=== PATIENT | male | born 1965 | race African-American/Black ===

== ENCOUNTER 2022-07-18 05:09 | Emergency (ER) | payer MEDICAID ==
[~2022-07-18] VITALS: Ht 188 cm; Wt 90.9 kg
[2022-07-18 05:57] VITALS: BP 160/80
== END 2022-07-18 06:53 | disposition home or self-care (01) ==
LOC: EMS 05:09
DX: F25.9 Schizoaffective disorder, unspecified (principal); F31.9 Bipolar disorder, unspecified; F15.90 Other stimulant use, unspecified, uncomplicated
CPT/HCPCS: 99285; Z7502

== ENCOUNTER 2024-10-19 13:27 | Emergency (ER) | payer MEDICAID, OTHER ==
[~2024-10-19] VITALS: Ht 188 cm; Wt 80.4 kg
[2024-10-19 13:36] VITALS: BP 116/69; PULSE 89; RESP 24; TEMP 98.9; O2SAT 98
[2024-10-19] MEDS: BACITRACIN 0.9 GM PACKET OINTMENT TP ONE (14:02)
== END 2024-10-19 14:32 ==
LOC: EMS 13:27
DX: S61.011A Laceration without foreign body of right thumb without damage to nail, initial encounter (principal); F20.9 Schizophrenia, unspecified; Z88.0 Allergy status to penicillin; X58.XXXA Exposure to other specified factors, initial encounter; Y93.89 Activity, other specified; Y92.89 Other specified places as the place of occurrence of the external cause; Y99.8 Other external cause status
CPT/HCPCS: 99283

== ENCOUNTER 2025-04-02 13:15 | Inpatient (IN) | payer MEDICAID, OTHER ==
[~2025-04-02] VITALS: Ht 182.9 cm; Wt 85.8 kg
[2025-04-02] MEDS ORDERED: 0.9% SODIUM CHLORIDE 10 ML SYRINGE IVP PRN (15:30)
[2025-04-02 15:56] LABS: PLATELET COUNT (AUTO) 282 K/uL (150-450); RED BLOOD CELL COUNT(AUTO) 3.39 MIL/uL (4.50-5.90); RED CELL DISTRIBUTION WIDTH 15.3 % (11.5-14.5); WHITE BLOOD COUNT (AUTO) 7.5 K/uL (4.5-11.0)
[2025-04-02] MEDS: SODIUM CHLORIDE 0.9% 2,450 ML IV ONE (16:00)
[2025-04-02 16:05] LABS: CALCIUM, TOTAL 8.8 mg/dL (8.8-10.5); CREATININE 0.77 mg/dL (0.60-1.30); GLOMERULAR FILTR. RATE CALC > 60 mL/min (>60); GLUCOSE,RANDOM 91 mg/dL (70-110); SODIUM SERUM 138 mmol/L (136-145); UREA NITROGEN, BLOOD 13 mg/dL (7-18)
[2025-04-02 16:12] LABS: LACTIC ACID 1.3 mmol/L (0.4-2.0)
[2025-04-02 16:15] LABS: TROPONIN I-HIGH SENSITIVITY 6 ng/L (<76)
[2025-04-02 16:21] LABS: APPEARANCE,URINE CLEAR (CLEAR); GLUCOSE, URINE (UA) NEGATIVE (NEGATIVE); LEUKOCYTE ESTERASE ,URINE NEGATIVE (NEGATIVE); NITRATE,URINE NEGATIVE (NEGATIVE); OCCULT BLOOD,URINE NEGATIVE (NEGATIVE); SPECIFIC GRAVITIY, URINE 1.023 (1.003-1.030)
[2025-04-02] MEDS: ONDANSETRON HCL 4 MG/2 ML VIAL IVP ONE (16:32)
[2025-04-02] MEDS: VANCOMYCIN 1.75GM/WATER(PEG) 350 ML IV ONE (16:32)
[2025-04-02] MEDS: MORPHINE SULFATE 4 MG/ML SYRINGE IVP ONE (16:32)
[2025-04-02] MEDS: BACITRACIN 28 GM OINTMENT TP ONE (16:32)
[2025-04-02] MEDS ORDERED: BISACODYL 10 MG RECTAL RECTAL SUPPOSITORY PR PRN (19:45)
[2025-04-02] MEDS ORDERED: ONDANSETRON HCL 4 MG/2 ML VIAL IVP PRN (19:45)
[2025-04-02] MEDS ORDERED: MAGNESIUM HYDROXIDE SUSPENSION 30 ML UDCUP PO PRN (19:45)
[2025-04-02] MEDS ORDERED: ZOLPIDEM TARTRATE 5 MG TABLET PO PRN (19:45)
[2025-04-02] MEDS: DOCUSATE SODIUM 100 MG CAPSULE PO SCH (21:08)
[2025-04-02 22:17] VITALS: BP 134/73; PULSE 106; RESP 18; TEMP 98.6; O2SAT 100
[2025-04-02] MEDS: MORPHINE SULFATE 2 MG/ML SYRINGE IVP PRN (22:56)
[2025-04-02] MEDS ORDERED: SODIUM CHLORIDE 0.9% 500 ML IV ONE (23:37)
[2025-04-02] MEDS: VANCOMYCIN 1GM/WATER(PEG/NADA) 200 ML IV SCH (23:47)
[2025-04-02] MEDS: HEPARIN SODIUM,PORCINE 5,000 UNITS/ML VIAL SQ SCH (23:51)
[2025-04-03] MEDS ORDERED: VANCOMYCIN 1GM/WATER(PEG/NADA) 200 ML IV SCH
[2025-04-03 04:27] VITALS: BP 110/78; PULSE 91; RESP 18; TEMP 98.3; O2SAT 97
[2025-04-03 06:13] LABS: CALCIUM, TOTAL 8.4 mg/dL (8.8-10.5); CREATININE 0.68 mg/dL (0.60-1.30); GLOMERULAR FILTR. RATE CALC > 60 mL/min (>60); GLUCOSE,RANDOM 94 mg/dL (70-110); SODIUM SERUM 140 mmol/L (136-145); UREA NITROGEN, BLOOD 8 mg/dL (7-18)
[2025-04-03 06:20] LABS: PLATELET COUNT (AUTO) 247 K/uL (150-450); RED BLOOD CELL COUNT(AUTO) 3.23 MIL/uL (4.50-5.90); RED CELL DISTRIBUTION WIDTH 15.1 % (11.5-14.5); WHITE BLOOD COUNT (AUTO) 5.9 K/uL (4.5-11.0)
[2025-04-03] MEDS: PANTOPRAZOLE SODIUM 40 MG DR TABLET PO SCH (08:12)
[2025-04-03] MEDS: BACITRACIN 28 GM OINTMENT TP SCH (08:13)
[2025-04-03 08:34] VITALS: BP 107/69; PULSE 89; RESP 18; TEMP 97.9; O2SAT 98
[2025-04-03 19:35] VITALS: BP 112/77; PULSE 90; RESP 18; TEMP 98.1; O2SAT 100
[2025-04-04 04:23] VITALS: BP 105/65; PULSE 76; RESP 18; TEMP 98.1; O2SAT 98
[2025-04-04 06:15] LABS: PLATELET COUNT (AUTO) 269 K/uL (150-450); RED BLOOD CELL COUNT(AUTO) 3.26 MIL/uL (4.50-5.90); RED CELL DISTRIBUTION WIDTH 15.2 % (11.5-14.5); WHITE BLOOD COUNT (AUTO) 4.4 K/uL (4.5-11.0)
[2025-04-04 06:16] LABS: CALCIUM, TOTAL 8.4 mg/dL (8.8-10.5); CREATININE 0.79 mg/dL (0.60-1.30); GLOMERULAR FILTR. RATE CALC > 60 mL/min (>60); GLUCOSE,RANDOM 91 mg/dL (70-110); SODIUM SERUM 139 mmol/L (136-145); UREA NITROGEN, BLOOD 10 mg/dL (7-18)
[2025-04-04 08:33] VITALS: BP 110/64; PULSE 86; RESP 18; TEMP 97.9; O2SAT 100
[2025-04-04] MEDS: MULTIVITAMINS WITH MINERALS, THERAPEUTIC TABLET PO SCH (09:13)
[2025-04-04 10:00] LABS: PH,URINE DRUG SCREEN 5.5 (5.0-8.0)
[2025-04-04 10:07] LABS: ALCOHOL, URINE DRUG SCREEN NEGATIVE (NEGATIVE); AMPHET/METH SCREEN,URINE NEGATIVE (NEGATIVE); BARBITURATE SCREEN, URINE NEGATIVE (NEGATIVE); CANNABINOID SCREEN,URINE NEGATIVE (NEGATIVE); COCAINE SCREEN,URINE NEGATIVE (NEGATIVE); METHADONE SCREEN, URINE NEGATIVE (NEGATIVE)
[2025-04-04 20:20] VITALS: BP 128/73; PULSE 86; RESP 16; TEMP 98.1; O2SAT 100
[2025-04-05 04:05] VITALS: BP 110/68; PULSE 81; RESP 18; TEMP 98.2; O2SAT 98
[2025-04-05 06:22] LABS: PLATELET COUNT (AUTO) 257 K/uL (150-450); RED BLOOD CELL COUNT(AUTO) 3.37 MIL/uL (4.50-5.90); RED CELL DISTRIBUTION WIDTH 15.1 % (11.5-14.5); WHITE BLOOD COUNT (AUTO) 4.2 K/uL (4.5-11.0)
[2025-04-05 06:28] LABS: CALCIUM, TOTAL 8.5 mg/dL (8.8-10.5); CREATININE 0.83 mg/dL (0.60-1.30); GLOMERULAR FILTR. RATE CALC > 60 mL/min (>60); GLUCOSE,RANDOM 90 mg/dL (70-110); SODIUM SERUM 138 mmol/L (136-145); UREA NITROGEN, BLOOD 16 mg/dL (7-18)
[2025-04-05 08:27] VITALS: BP 109/71; PULSE 70; RESP 18; TEMP 98.3; O2SAT 98
[2025-04-05] MEDS: ACETAMINOPHEN 325 MG TABLET PO PRN (16:13)
[2025-04-05 19:20] VITALS: BP 105/63; PULSE 87; RESP 18; TEMP 97.2; O2SAT 99
[2025-04-06 04:41] VITALS: BP 105/72; PULSE 74; RESP 18; TEMP 97.7; O2SAT 99
[2025-04-06 08:08] LABS: CALCIUM, TOTAL 8.9 mg/dL (8.8-10.5); CREATININE 0.93 mg/dL (0.60-1.30); GLOMERULAR FILTR. RATE CALC > 60 mL/min (>60); GLUCOSE,RANDOM 86 mg/dL (70-110); SODIUM SERUM 139 mmol/L (136-145); UREA NITROGEN, BLOOD 16 mg/dL (7-18)
[2025-04-06 08:34] VITALS: BP 99/68; PULSE 70; RESP 18; TEMP 97.9; O2SAT 100
[2025-04-06] MEDS: HYDROCODONE/ACETAMINOPHEN 5-325 MG TABLET PO PRN (09:27)
[2025-04-06 20:00] VITALS: BP 104/69; PULSE 94; RESP 18; TEMP 98.4; O2SAT 98
[2025-04-06] MEDS: VANCOMYCIN 1.25 GM/WATER(PEG) 250 ML IV SCH (20:25)
[2025-04-07 04:00] VITALS: BP 101/58; PULSE 65; RESP 18; TEMP 97.5; O2SAT 99
[2025-04-07 07:34] VITALS: BP 102/69; PULSE 85; RESP 18; TEMP 97.7; O2SAT 94
[2025-04-07 08:05] LABS: CALCIUM, TOTAL 8.8 mg/dL (8.8-10.5); CREATININE 0.84 mg/dL (0.60-1.30); GLOMERULAR FILTR. RATE CALC > 60 mL/min (>60); GLUCOSE,RANDOM 85 mg/dL (70-110); SODIUM SERUM 138 mmol/L (136-145); UREA NITROGEN, BLOOD 19 mg/dL (7-18)
[2025-04-07 19:13] VITALS: BP 101/66; PULSE 74; RESP 18; TEMP 98.2; O2SAT 97
[2025-04-08 04:39] VITALS: BP 99/70; PULSE 69; RESP 18; TEMP 97.9; O2SAT 98
[2025-04-08 06:59] LABS: CALCIUM, TOTAL 8.6 mg/dL (8.8-10.5); CREATININE 0.97 mg/dL (0.60-1.30); GLOMERULAR FILTR. RATE CALC > 60 mL/min (>60); GLUCOSE,RANDOM 83 mg/dL (70-110); SODIUM SERUM 138 mmol/L (136-145); UREA NITROGEN, BLOOD 22 mg/dL (7-18)
[2025-04-08 07:15] VITALS: BP 98/61; PULSE 66; RESP 18; TEMP 97.9; O2SAT 99
[2025-04-08 19:15] VITALS: BP 105/61; PULSE 79; RESP 18; TEMP 98.2; O2SAT 97
[2025-04-09 04:30] VITALS: BP 97/53; PULSE 74; RESP 18; TEMP 97.9; O2SAT 98
[2025-04-09 08:00] VITALS: BP 101/70; PULSE 73; RESP 20; TEMP 97.3; O2SAT 100
[2025-04-09 20:04] VITALS: BP 103/66; PULSE 70; RESP 18; TEMP 98.1; O2SAT 100
[2025-04-10 03:52] VITALS: BP 111/64; PULSE 69; RESP 18; TEMP 97.7; O2SAT 99
[2025-04-10 08:27] VITALS: BP 108/68; PULSE 68; RESP 18; TEMP 97.7; O2SAT 98
[2025-04-10 20:55] VITALS: BP 102/62; PULSE 71; RESP 18; TEMP 98.1; O2SAT 99
[2025-04-11 04:25] VITALS: BP 103/67; PULSE 70; RESP 18; TEMP 97.9; O2SAT 97
[2025-04-11 08:00] VITALS: BP 107/69; PULSE 66; RESP 18; TEMP 98.1; O2SAT 99
[2025-04-11] MEDS ORDERED: BACI28.410 TP (12:24)
[2025-04-11] MEDS ORDERED: DOCU-385 PO (12:25)
[2025-04-11] MEDS ORDERED: MULT-1303 PO (12:27)
[2025-04-11] MEDS ORDERED: MAGN-169 PO (12:29)
[2025-04-11] MEDS ORDERED: ACET-2247 PO (12:29)
== END 2025-04-11 17:00 | DRG 872 ==
LOC: EMS 13:17 → EDH 16:06 → 6S 22:14
PROVIDERS: ADMIT Internal Medicine; ATTEND Internal Medicine
DX: A41.9 Sepsis, unspecified organism (principal); L03.116 Cellulitis of left lower limb; L03.115 Cellulitis of right lower limb; E44.0 Moderate protein-calorie malnutrition; M17.0 Bilateral primary osteoarthritis of knee; D64.9 Anemia, unspecified; M16.0 Bilateral primary osteoarthritis of hip; F43.10 Post-traumatic stress disorder, unspecified; F31.9 Bipolar disorder, unspecified; F25.9 Schizoaffective disorder, unspecified; F19.10 Other psychoactive substance abuse, uncomplicated; S01.00XA Unspecified open wound of scalp, initial encounter; X58.XXXA Exposure to other specified factors, initial encounter; Y93.89 Activity, other specified; Z88.0 Allergy status to penicillin; Y92.89 Other specified places as the place of occurrence of the external cause; Y99.8 Other external cause status; Z68.25 Body mass index [BMI] 25.0-25.9, adult
CPT/HCPCS: 70450; 71045; 73521; 80048; 80202; 80307; 81003; 83605; 83880; 84145; 84484; 85025; 85610; 87040; 87070; 87186; 87205; 93005; 93971; 97110; 97116; 97163; 97167; 97530; 97535; 99285; J1644; J2270; J2405; J7040; 36415-L1; 36415-TC